=== PATIENT | male | born 1970 | race African-American/Black ===

== ENCOUNTER 2017-06-13 17:00 | Inpatient (IN) | payer MEDICARE, MEDICAID ==
[~2017-06-13] VITALS: Ht 175.3 cm; Wt 86.2 kg
--- NOTE | ~2017-06-13 | HP ---
Unit #: [id number] #: [id number] Patient: YEISON HAHN [id number] [facility] [address] [place] [address] [id number] I MR#: [id number] NAME: YEISON HAHN ROOM: P211 Age: 46 Sex: M Admission Date: 06/13/2017 : 1970 Attending Physician: Agusto Cheung M.D. Admitting Physician: Agusto Cheung M.D. Primary Care Physician: Primary Care Physician No HISTORY AND PHYSICAL HISTORY OF PRESENT ILLNESS The patient is a 46-year-old male has been admitted to [facility] for suicidal and homicidal ideations. He is also hear for detox. PAST MEDICAL HISTORY 1. Arthritis. 2. Diabetes. 3. Hypertension. 4. Tobaccoism. 5. Polysubstance abuse. PAST SURGICAL HISTORY None. ALLERGIES No known allergies. HOME MEDICATIONS Metformin 100 mg p.o. b.i.d. FAMILY HISTORY Medically noncontributory. SOCIAL HISTORY He is disabled and homeless. He smokes approximately 1-1/2 packs of cigarettes daily. He also uses spice and crack. REVIEW OF SYSTEMS CONSTITUTIONAL: Denies fever or chills. HEENT: Denies sore throat, ear pain, or runny nose. CARDIOVASCULAR: Denies chest pain, irregular heart rhythm, or palpitations. CHEST: Denies shortness of breath or cough. No hemoptysis. GI: Denies nausea, vomiting, diarrhea, or chronic constipation. ENDOCRINE: Denies increased thirst or urination. Denies any recent weight loss or gain. : Denies dysuria, frequency, or hematuria. SKIN: Denies any rashes. HEMATOLOGIC: Denies history of increased bleeding or bruising. MUSCULOSKELETAL: Denies any hot, swollen joints. No generalized pain. NEUROLOGIC: Denies problems with speech, vision, numbness, or tingling. Denies loss of bowel or bladder control. Unit #: [id number] #: [id number] Patient: YEISON HAHN PHYSICAL EXAMINATION GENERAL: The patient is awake, alert, in no acute distress. VITAL SIGNS: Temperature 98.2, heart rate 66, respirations 18, blood pressure 159/92. He is 5 feet 9 inches and weighs 190 pounds. HEENT: Head is atraumatic, normocephalic. Pupils are equal, round, and reactive. Extraocular movements are intact. No drainage from ears or nose. NECK: Supple. Trachea is midline. HEART: Regular rate and rhythm. LUNGS: Clear. ABDOMEN: Soft, nontender, and nondistended. : Not done. SKIN: Warm, dry without unusual rashes or lesions. EXTREMITIES: No clubbing, cyanosis, or edema. NEUROLOGIC: Cranial nerves II through XII are intact. No focal deficits. Sensory/motor function: Grossly normal. Moves all extremities well. Coordination: Gait normal. Deep tendon reflexes intact. IMPRESSION Psychiatric admission. RECOMMENDATIONS PSYCHIATRIC: Per psychiatrist. MEDICAL: I see no contraindication to participate in this facility activities. MEDICAL PROGNOSIS Fair. MEDICAL CONDITION Stable. Dictated by... Bozena Mcdonald TD: 06/14/2017 13:34 JOB #: [id number] HISTORY AND PHYSICAL Page 1 of 1 X Michelle Reese APRN X HISTORY AND PHYSICAL
--- NOTE | ~2017-06-13 | DS ---
Unit #: [id number] #: [id number] Patient: YEISON HAHN [id number] [facility] [address] [place] [address] [id number] I MR#: [id number] NAME: YEISON HAHN ROOM: [facility] Age: 46 Sex: M Admission Date: 06/13/2017 : 1970 Discharge Date: 06/17/2017 Attending Physician: Agusto Cheung M.D. Primary Care Physician: Primary Care Physician No DISCHARGE SUMMARY REASON FOR ADMISSION Suicidal ideation, homicidal ideation, addiction. DIAGNOSTIC STUDIES LABORATORY RESULTS: Unremarkable. HOSPITAL COURSE The patient was admitted to inpatient unit on 06/13/2017 and discharged on 06/17/2017. The patient was treated on the inpatient unit with group therapy, individual therapy, and medication management. The patient was responsive to treatment. The patient was subsequently discharged with a plan to follow up in outpatient program. DISCHARGE MEDICATIONS Zyprexa 10 mg b.i.d. for psychosis and Glucophage 1000 mg b.i.d. for diabetes. DISCHARGE DIAGNOSES Psychiatric: Schizoaffective disorder, bipolar type, F25.9; history of amphetamine abuse; cocaine abuse, moderate. Secondary diagnosis: Deferred. Medical diagnosis: None. Stressors: Psychosocial stressors. DISCHARGE INSTRUCTIONS The patient to follow up in outpatient clinic as per clinical social worker. CONDITION ON DISCHARGE The patient was pleasant and cooperative. Denied any psychotic symptom or any suicidal ideation. PROGNOSIS Guarded. DIET AND ACTIVITY As tolerated. Dictated by... Mayur Trevino M.D. Unit #: [id number] #: [id number] Patient: YEISON HAHN SZC/modl TD: 06/17/2017 21:00 JOB #: [id number] DISCHARGE SUMMARY Page 1 of 1 X Mayur Trevino MD X DISCHARGE SUMMARY
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
--- NOTE | ~2017-06-13 | PN ---
Unit #: [id number] #: [id number] Patient: YEISON HAHN [id number] [facility] [address] [place] [address] [id number] I MR#: [id number] NAME: YEISON HAHN ROOM: 13 Age: 46 Sex: M Admission Date: 06/13/2017 : 1970 Attending Physician: Agusto Cheung M.D. Admitting Physician: Agusto Cheung M.D. Primary Care Physician: Primary Care Physician Caren HOLLAND PROGRESS NOTES DATE OF SERVICE 06/16/2017 DISCUSSION Mr. Arias is a 46-year-old male seen on 06/16/2017. The patient interviewed, chart reviewed. Obtained information from nursing staff. The patient was compliant, cooperative. Mood sad, dysphoric, affect guarded. The patient was admitted with suicidal ideation, homicidal ideation, or addiction. The patient reports making progress. No side effects from medication. Complete Review of Systems: Unremarkable. MENTAL STATUS EXAMINATION General Appearance: The patient dressed casually. Attention span, concentration: Fair. Oriented in place and person. Mood and affect labile. Speech: Monotone. Thought process: [place]. The patient denied any thoughts of harming self or others or any psychotic symptom. Somewhat guarded, seclusive. Recent and remote memory: Poor. Insight and judgment: Poor. DIAGNOSIS Schizoaffective disorder bipolar type, F25.9 ASSESSMENT/PLAN Advised to continue with current medication and therapeutic protocol. If needed, consider further adjustment of medication. Dictated by... Owen Herr/hai TD: 06/18/2017 09:00 JOB #: [id number] Unit #: [id number] #: [id number] Patient: YEISON HAHN [facility] PROGRESS NOTES Page 1 of 1 X Mayur Trevino MD PROGRESS NOTE
--- NOTE | ~2017-06-13 | PN ---
Unit #: [id number] #: [id number] Patient: YEISON PARIS [id number] [facility] [address] [place] [address] [id number] I MR#: [id number] NAME: YEISON PARIS ROOM: P113 Age: 46 Sex: M Admission Date: 06/13/2017 : 1970 Attending Physician: Agusto Cheung M.D. Admitting Physician: Agusto Cheung M.D. Primary Care Physician: Primary Care Physician Caren BULLOCK NOTES DATE June 15, 2017 DISCUSSION Mr. Paris is a 46-year-old male, who was seen today and chart was reviewed and the case was discussed with the staff. He has been anxious, withdrawn, agitated, irritable, disorganized and rather seclusive to himself with bizarre behavior and unable to carry on meaningful conversation. He does appear to be somewhat out of touch with reality. Meanwhile, he has been taking the medications and tolerating them fairly well with no reported side effects. MENTAL STATUS EXAMINATION Middle-aged male, who was casually dressed with fair personal hygiene and appears to be in no acute distress or discomfort. He was awake and alert with intact orientation. His mood is anxious with a congruent affect. He denies any suicidal or homicidal ideations. His insight and judgment remain slightly impaired. TREATMENT PLAN 1. We will continue him on his current medications and treatment protocol, and will monitor his response to the medications, and make further adjustments as needed. 2. We will continue to followup. Dictated by... Owen Bill/shima TD: 06/16/2017 12:52 JOB #: [id number] Unit #: [id number] #: [id number] Patient: YEISON PARIS [facility]ACH[facility]CORAL PROGRESS NOTES Page 1 of 1 X Agusto Cheung MD PROGRESS NOTE
--- NOTE | ~2017-06-13 | CO ---
Unit #: [id number] #: [id number] Patient: YEISON HAHN [id number] [facility] [address] [place] [address] [id number] I MR#: [id number] NAME: YEISON HAHN ROOM: [facility] Age: 46 Sex: M Admission Date: 06/13/2017 : 1970 Attending Physician: Agusto Cheung M.D. Consultation Date: 06/14/2017 CONSULTATION REPORT REASON FOR CONSULTATION Diabetes. SUBJECTIVE The patient is a 46-year-old male, who states that he has been diabetic since 2004. The patient states that he takes metformin 1000 mg p.o. b.i.d. He states he has been without his metformin for approximately 20 days. He states he does not check his blood sugars at home and does not really have much medical followup. OBJECTIVE GENERAL: The patient is awake, alert, in no acute distress. VITAL SIGNS: Stable. CHEST: Clear. CARDIOVASCULAR: S1, S2. SKIN: Warm, dry, and intact. EXTREMITIES: No clubbing, edema, or cyanosis. ASSESSMENT Diabetes. PLAN At this time, we will check a hemoglobin A1c on the patient. We will also resume the patient's home metformin a 1000 mg p.o. b.i.d. I have discussed with the patient that he will need outpatient followup and he will follow up with either [facility] or [facility]. The patient at this time is agreeable. Dictated by... Michelle Reese A.P.R.N. for Helena De La Rosa M.D. AM/odell TD: 06/14/2017 13:27 JOB #: [id number] Unit #: [id number] #: [id number] Patient: YEISON HAHN CONSULTATION REPORT Page 1 of 1 X Michelle Reese APRN X CONSULTATION REPORT
[2017-06-14 11:27] LABS: EOSINOPHIL# 0.4 X10e3 (0-0.7); EOSINOPHIL% 7.7 % (0.0-7.0); HEMATOCRIT 40.9 % (38.0-50.0); HEMOGLOBIN 13.3 gm/dL (13.0-16.0); MEAN CELL VOLUME 78.3 FL (83-96); MEAN CORPUSCULAR HEMOGLOBIN 25.5 PG (28-34); MEAN CORPUSCULAR HGB CONC 32.5 g/dL (30-36); MEAN PLATELET VOLUME 8.3 FL (6.5-11.5); MONOCYTE# 0.3 X10e3 (0-1.0); MONOCYTE% 7.1 % (3.0-12.0); NEUTROPHIL% 41.2 % (40-75); PLATELET COUNT 243 X10e3 (140-420); RED BLOOD COUNT 5.22 X10e (3.90-5.60); WHITE BLOOD COUNT 4.8 X10e3 (4.0-10.5)
[2017-06-14 11:31] LABS: DIFF IND NO
[2017-06-14 11:53] LABS: ALBUMIN SERUM 4.2 g/dL (3.5-5.0); BILIRUBIN,TOTAL 0.7 mg/dL (0.2-2.0); BUN/CREATININE RATIO 8.66; CALCIUM SERUM 9.9 mg/dL (8.4-10.2); CREATININE SERUM 1.5 mg/dL (0.6-1.4); GLOM FILT RATE Estimated 63.8 mL/min (>60); POTASSIUM 4.8 mmol/L (3.5-5.1); PROTEIN TOTAL SERUM 7.1 g/dL (6.0-8.3)
[2017-06-17 12:31] LABS: URINE APPEARANCE CLEAR; URINE BILIRUBIN NEG (NEG); URINE BLOOD NEG (NEG); URINE COLOR YELLOW; URINE GLUCOSE NEG (NEG); URINE KETONE NEG (NEG); URINE LEUKOCYTE ESTERASE 3+ (NEG); URINE NITRATE NEG (NEG); URINE PROTEIN NEG (NEG); URINE SPECIFIC GRAVITY 1.022 (1.003-1.035); URINE UROBILINOGEN 0.2 MG/DL (NEG)
[2017-06-17 12:35] LABS: URBCS1 AUWI 0-2 /[HPF] (0-2); URINE BACTERIA AUWI 2+ (NEGATIVE); URINE SQUAMOUS EPITHELIAL CELL OCC /[HPF]; UWBCS1 AUWI 50-100 (0-5)
[2017-06-17 12:53] LABS: AMPHETAMINE NEG (NEG); BARBITURATES NEG (NEG); BENZODIAZEPINES NEG (NEG); COCAINE NEG (NEG); MARIJUANA NEG (NEG); OPIATES NEG (NEG); TRICYCLIC ANTIDEPRESSANTS NEG (NEG); U METHADONE NEG (NEG)
== END 2017-06-17 10:34 | disposition home or self-care (01) | DRG 885 ==
LOC: P2S 19:59 → P1S 19:59 → P2S 22:45 → P1S 06-14 13:30
PROVIDERS: Psychiatry & Neurology Psychiatry
PROC: HZ2ZZZZ Detoxification Services for Substance Abuse Treatment (ICD-10-PCS; principal; 2017-06-13)
DX: F25.9 Schizoaffective disorder, unspecified (principal); F14.20 Cocaine dependence, uncomplicated; R45.851 Suicidal ideations; F15.20 Other stimulant dependence, uncomplicated; R45.850 Homicidal ideations; M19.90 Unspecified osteoarthritis, unspecified site; E11.9 Type 2 diabetes mellitus without complications; I10 Essential (primary) hypertension; F17.210 Nicotine dependence, cigarettes, uncomplicated; Z79.84 Long term (current) use of oral hypoglycemic drugs
CPT/HCPCS: 80053; 80307; 81003; 83036; 85025

== ENCOUNTER 2017-07-23 10:14 | Inpatient (IN) | payer MEDICARE, MEDICAID ==
[~2017-07-23] VITALS: Ht 175.3 cm; Wt 86.2 kg
--- NOTE | ~2017-07-23 | PN ---
Unit #: [id number] #: [id number] Patient: YEISON PARIS [id number] [facility] [address] [place] [address] [id number] I MR#: [id number] NAME: YEISON PARIS ROOM: 32 Age: 46 Sex: M Admission Date: 07/23/2017 : 1970 Attending Physician: Agusto Cheung M.D. Admitting Physician: Agusto Cheung M.D. Primary Care Physician: Primary Care Physician Caren BULLOCK NOTES DATE OF SERVICE: 07/27/2017 SUBJECTIVE Mr. Paris is a 46-year-old male, who was seen today and chart was reviewed, and case was discussed with the staff. He was seen to be anxious, withdrawn, disorganized, . Meanwhile, he has been taking the medications and tolerating them fairly well with no reported side effects. MENTAL STATUS EXAMINATION Middle-aged male, who was casually dressed with a fair personal hygiene and appears to be in no acute distress or discomfort. He was awake and alert with impaired attention and concentration. His mood was anxious with a congruent affect. He denies any suicidal or homicidal ideations. His thought processes were disorganized with some looseness of associations and paranoid ideations. His insight and judgment remain significantly impaired. TREATMENT PLAN 1. We will continue him on his current medications and treatment protocol. We will monitor his response to medication and make further adjustments as needed. 2. We will continue to follow up. Dictated by... Owen Bill/odell TD: 07/30/2017 02:38 JOB #: [id number] Unit #: [id number] #: [id number] Patient: YEISON PARIS [facility] BULLOCK NOTES Page 1 of 1 X Agusto Cheung MD NOTE
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
--- NOTE | ~2017-07-23 | DS ---
Unit #: [id number] #: [id number] Patient: YEISON PARIS [id number] [facility] [address] [place] [address] [id number] MR#: [id number] NAME: YEISON PARIS ROOM: [facility] Age: 46 Sex: M Admission Date: 07/23/2017 : 1970 Discharge Date: 07/30/2017 Attending Physician: Agusto Cheung M.D. Primary Care Physician: Primary Care Physician No DISCHARGE SUMMARY IDENTIFYING DATA Mr. Paris is a 46-year-old single male, who is a resident of [place], [place], and is known to me from previous encounter and was self-referred to the hospital on a voluntary basis. DISCHARGE DIAGNOSES Psychiatric: Schizoaffective disorder, bipolar type, most recent episode depressed, recurrent, moderate, with psychosis; cannabis abuse, moderate; cocaine abuse, moderate; and psychostimulant abuse, moderate. Medical: None. Stressors: Moderate psychosocial stressors. HISTORY OF PRESENT ILLNESS Please see initial psychiatric evaluation for details. PAST PSYCHIATRIC HISTORY Please see initial psychiatric evaluation for details. PAST MEDICAL HISTORY Please see initial psychiatric evaluation for details. HOSPITAL COURSE The patient was admitted to the adult psychiatric unit at [facility] alysha Enrique and was oriented to the hospital environment. Routine p.r.n. medications were initiated, and he was started back on his home medications and medications were adjusted and Zyprexa was started back and he was closely monitored. He was taking the medications regularly and was tolerating them fairly well and was able to show a decent and therapeutic response with improvement in depression and anxiety and was willing to continue treatment on an outpatient basis and as such, it was decided that he will be discharged home and will continue treatment on an outpatient basis. DISCHARGE MEDICATIONS Zyprexa 10 mg b.i.d. for psychosis. DISCHARGE CONDITION Stable. PROGNOSIS Fair. Dictated by... Unit #: [id number] #: [id number] Patient: YEISON PARIS Owen Bill/sudhirl TD: 07/30/2017 16:31 JOB #: [id number] DISCHARGE SUMMARY Page 1 of 1 X Agusto Cheung MD DISCHARGE SUMMARY
--- NOTE | ~2017-07-23 | PN ---
Unit #: [id number] #: [id number] Patient: YEISON PARIS [id number] [facility] [address] [place] [address] [id number] I MR#: [id number] NAME: YEISON PARIS ROOM: 32 Age: 46 Sex: M Admission Date: 07/23/2017 : 1970 Attending Physician: Agusto Cheung M.D. Admitting Physician: Agusto Cheung M.D. Primary Care Physician: Primary Care Physician Caren BULLOCK NOTES DATE 07/24/2017 DISCUSSION Mr. Paris is a 46-year-old, male with substance abuse and mood disorder and psychosis who was seen today and chart was reviewed and case was discussed with the staff. He was seen to be anxious, withdrawn, agitated, irritable, disorganized and rather delusional and unable to carry on meaningful conversations stating " "I am spiced out." Meanwhile, he has been taking medication which was just initiated yesterday without any tolerability issues. MENTAL STATUS EXAM Middle-aged male who was casually dressed with fair personal hygiene, appears to be in no acute distress or discomfort. He was awake and alert with impaired attention and concentration. His mood was anxious and depressed with congruent affect. His speech was slow and restricted in content. His thought processes were disorganized with some looseness of associations and paranoid ideations. His insight and judgement remains significantly impaired. TREATMENT PLAN 1. We will continue him on his current medications and treatment protocol. We will monitor his response and make further adjustments as needed. 2. We will continue to follow up. Dictated by... Owen Bill/dimitris TD: 07/24/2017 22:56 JOB #: [id number] Unit #: [id number] #: [id number] Patient: YEISON PARIS ZACHARYCORAL KOBE NOTES Page 1 of 1 X Agusto Cheung MD PROGRESS NOTE
--- NOTE | ~2017-07-23 | PN ---
Unit #: [id number] #: [id number] Patient: YEISON PARIS [id number] [facility] [address] [place] [address] [id number] I MR#: [id number] NAME: YEISON PARIS ROOM: 32 Age: 46 Sex: M Admission Date: 07/23/2017 : 1970 Attending Physician: Agusto Cheung M.D. Admitting Physician: Agusto Cheung M.D. Primary Care Physician: Primary Care Physician Caren BULLOCK NOTES DATE OF SERVICE: 07/28/2017 SUBJECTIVE Mr. Paris is a 46-year-old male, who was seen today, chart was reviewed and case was discussed with the staff. He has been anxious, restless, withdrawn, and rather seclusive to himself. Meanwhile, he has been cooperative with treatment recommendations and still has been showing some significant mood instability. MENTAL STATUS EXAMINATION Middle-aged male, who is casually dressed with fair personal hygiene, appears to be in no acute distress or discomfort. He was awake and alert with impaired attention and concentration. His mood was anxious with a congruent affect. His speech was slow and restricted in content. He denies any suicidal or homicidal ideations and also denies any auditory or visual hallucinations. His insight and judgment remain slightly impaired. TREATMENT PLAN 1. We will continue on his current medications and treatment protocol. We will monitor his response to medications and make further adjustments as needed. 2. We will continue to follow up. Dictated by... Owen Bill/odell TD: 07/30/2017 03:07 JOB #: [id number] Unit #: [id number] #: [id number] Patient: YEISON PARIS ZACHARYCORAL PROGRESS NOTES Page 1 of 1 X Agusto Cheung MD PROGRESS NOTE
--- NOTE | ~2017-07-23 | CO ---
Unit #: [id number] #: [id number] Patient: YEISON HAHN [id number] [facility] [address] [place] [address] [id number] I MR#: [id number] NAME: YEISON HAHN ROOM: 32 Age: 46 Sex: M Admission Date: 07/23/2017 : 1970 Attending Physician: Agusto Cheung M.D. Primary Care Physician: Primary Care Physician No Consultation Date: 07/23/2017 CONSULTATION REPORT SUBJECTIVE Yeison is a 46-year-old with history of high blood pressure. His pressures have been high since admission. He was admitted on no home blood pressure medication. We have been asked to assess and treat. He has had no complaints of chest pain or shortness of breath. OBJECTIVE GENERAL: Alert, well nourished, in no apparent distress. VITAL SIGNS: Blood pressure 160/90, 152/102, 140/88. Heart rate 80, 91. Respirations 16. CARDIOVASCULAR: Rate and rhythm is regular. CHEST: Lungs clear. EXTREMITIES: No edema. ASSESSMENT High blood pressure, not controlled. PLAN Start Norvasc 5 mg one p.o. daily. Dictated by... Alee Colon P.A.-C. for wOen Fernandez/odell TD: 07/25/2017 13:24 JOB #: [id number] CONSULTATION REPORT Page 1 of 1 X Alee Colon CONSULTATION REPORT
--- NOTE | ~2017-07-23 | PN ---
Unit #: [id number] #: [id number] Patient: YEISON PARIS [id number] [facility] [address] [place] [address] [id number] I MR#: [id number] NAME: YEISON PARIS ROOM: 32 Age: 46 Sex: M Admission Date: 07/23/2017 : 1970 Attending Physician: Agusto Cheung M.D. Admitting Physician: Agusto Cheung M.D. Primary Care Physician: Primary Care Physician Caren BULLOCK NOTES DATE 07/26/2017 DISCUSSION Mr. Paris is a 46-year-old, male who was seen today and chart was reviewed and case was discussed with the staff. He was anxious, withdrawn, with bizarre behavior though has not shown any violent outburst. Meanwhile, he has been taking the medication and tolerating them fairly well with no reported side effects. MENTAL STATUS EXAM Middle-aged male who is casually dressed with fair personal hygiene appears to be in acute distress or discomfort. He was awake and alert with impaired attention and concentration. His mood was anxious with congruent affect. His speech was slow and restricted in content. His thought processes were disorganized with some looseness of associations and paranoid ideations. His insight and judgement remains significantly impaired. TREATMENT PLAN 1. We will continue him on his current medications and treatment protocol. We will monitor his response to the medication and make further adjustments as needed. 2. We will continue to follow up. Dictated by... Owen Bill/dimitris TD: 07/29/2017 03:50 JOB #: [id number] Unit #: [id number] #: [id number] Patient: YEISON PARIS SKYLER BULLOCK NOTES Page 1 of 1 X Agusto Cheung MD PROGRESS NOTE
--- NOTE | ~2017-07-23 | PN ---
Unit #: [id number] #: [id number] Patient: YEISON PARIS [id number] [facility] [address] [place] [address] [id number] I MR#: [id number] NAME: YEISON PARIS ROOM: 32 Age: 46 Sex: M Admission Date: 07/23/2017 : 1970 Attending Physician: Agusto Cheung M.D. Admitting Physician: Agusto Cheung M.D. Primary Care Physician: Primary Care Physician Caren BULLOCK NOTES DATE July 25, 2017 DISCUSSION Mr. Paris is a 46-year-old male, who was seen today and chart was reviewed and the case was discussed with the staff. He has been anxious, withdrawn, and seclusive to himself. Meanwhile, he has been cooperative with the treatment recommendations and he has been taking the medications and tolerating them fairly well with no reported side effects. MENTAL STATUS EXAMINATION Middle-aged male, who was casually dressed with fair personal hygiene and appears to be in no acute distress or discomfort. He was awake and alert on interaction with intact orientation. His mood is anxious with a congruent affect. He denies any suicidal or homicidal ideations. His thought processes are disorganized with some looseness of associations, paranoid ideations, and delusional behavior. His insight and judgment remain significantly impaired. TREATMENT PLAN 1. We will continue him on his current medications and treatment protocol, and will monitor his response to the medications, and make further adjustments as needed. 2. We will continue to followup. Dictated by... Owen Bill/shima TD: 07/25/2017 13:20 JOB #: [id number] Unit #: [id number] #: [id number] Patient: YEISON PARIS ZACHARYCORAL KOBE NOTES Page 1 of 1 X Agusto Cheung MD PROGRESS NOTE
--- NOTE | ~2017-07-23 | HP ---
Unit #: [id number] #: [id number] Patient: YEISON HAHN [id number] [facility] [address] [place] [address] [id number] I MR#: [id number] NAME: YEISON HAHN ROOM: P132 Age: 46 Sex: M Admission Date: 07/23/2017 : 1970 Attending Physician: Agusto Cheung M.D. Admitting Physician: Agusto Cheung M.D. Primary Care Physician: Primary Care Physician No HISTORY AND PHYSICAL HISTORY OF PRESENT ILLNESS Yeison is a 46 year old admitted to [address] [place] [address] with depression and verbalizing wanting to hurt himself. PAST MEDICAL HISTORY 1. History of poly-illicit substance abuse. 2. High blood pressure. 3. Degenerative disc disease. a. Chronic back pain. 4. Diabetes mellitus. PAST SURGICAL HISTORY Nothing reported. ALLERGIES No known drug allergies. SOCIAL HISTORY Smokes less than one-half pack per day. Admits to drinking alcohol and using marijuana on occasion. Has a long history of crack cocaine use and smoking spice. FAMILY HISTORY Medically noncontributory. REVIEW OF SYSTEMS CONSTITUTIONAL: No fever or chills. HEENT: Denies any sore throat, ear pain or runny nose. CARDIOVASCULAR: Denies chest pain, irregular heart rhythm or palpitations. CHEST: Denies shortness of breath or cough. No hemoptysis. GASTROINTESTINAL: Denies nausea, vomiting, diarrhea or chronic constipation. ENDOCRINE: Denies history of increased thirst or urination. No recent significant weight loss or gain. GENITOURINARY: Denies dysuria, frequency, or hematuria. SKIN: Denies any rashes. HEMATOLOGIC: Denies history of increased bleeding or bruising. MUSCULOSKELETAL: Denies any hot, swollen joints. No generalized muscle pain. NEUROLOGIC: Denies problems with vision or speech. No frequent, severe headaches. No numbness, tingling or weakness in any extremities. Denies loss of bladder or bowel control. Unit #: [id number] #: [id number] Patient: YEISON HAHN CURRENT MEDICATIONS 1. Desyrel 100 mg q h.s. 2. Zyprexa 10 mg b.i.d. 3. Vistaril p.r.n. 4. Glucophage 1000 mg b.i.d. 5. Nicotine patch 7 mg q day 6. Milk of Magnesia p.r.n. 7. Maalox p.r.n. 8. Tylenol p.r.n. PHYSICAL EXAMINATION GENERAL: Alert, well-nourished, in no apparent distress. VITAL SIGNS: Blood pressure 152/100, heart rate 80, respirations 16, temperature 98.6. WEIGHT: 190. HEIGHT: 5 foot 9 inches. SKIN: Warm and dry without rash or lesion. HEENT: Normocephalic. TMs not viewed. Oral and nasal passages clear. Conjunctivae clear. Pupils equal, round and reactive to light and accommodation. Extraocular movements intact. NECK: Supple without lymphadenopathy or thyromegaly. HEART: Regular rate and rhythm without murmur. LUNGS: Clear. ABDOMEN: Soft, nontender. : Not done. EXTREMITIES: No evidence of cyanosis, clubbing or edema. Moves all extremities without focal deficit. NEUROLOGICAL: Grossly within normal limits. Cranial Nerves: II: Visual herrera are intact. III, IV AND : Extraocular movements are intact. Pupils are equal, round and reactive to light. V: Facial sensation is grossly normal. VII: Facial movements and expression are normal. VIII: Auditory acuity grossly intact. IX, X: Uvula is midline. Phonation is normal. XI: Patient shrugs shoulders and turns head normally. XII: Tongue protrudes in the midline. Sensory and Motor Function: Sensory and motor sensation is grossly normal. Motor: moves all extremities well. Coordination: Gait is normal. Deep Tendon Reflexes: Intact. IMPRESSION Psychiatric admission. RECOMMENDATIONS PSYCHIATRIC: Per psychiatrist. MEDICAL: I see no contraindications to participating in facility's activities. MEDICAL PROGNOSIS Good. MEDICAL CONDITION Stable. Unit #: [id number] #: [id number] Patient: YEISON HAHN Dictated by... Enrique JaquezAGiuliano. for Owen Fernandez/dimitris TD: 07/23/2017 20:41 JOB #: [id number] HISTORY AND PHYSICAL Page 1 of 1 X Alee Colon HISTORY AND PHYSICAL
--- NOTE | ~2017-07-23 | PN ---
Unit #: [id number] #: [id number] Patient: YEISON PARIS [id number] [facility] [address] [place] [address] [id number] MR#: [id number] NAME: YEISON PARIS ROOM: 32 Age: 46 Sex: M Admission Date: 07/23/2017 : 1970 Attending Physician: Agusto Cheung M.D. Admitting Physician: Agusto Cheung M.D. Primary Care Physician: Primary Care Physician Caren BULLOCK NOTES DATE 07/29/2017 DISCUSSION Mr. Paris is a 46-year-old, white male who was seen today and chart was reviewed and case was discussed with the staff. He has been anxious, withdrawn and rather seclusive to himself. Meanwhile, he has been cooperative with treatment recommendations. He has been taking the medication and tolerating them fairly well with no reported side effects. MENTAL STATUS EXAM Middle-aged male who was casually dressed with fair personal hygiene, appears to be in no acute distress or discomfort. He was awake and alert with impaired attention and concentration. His mood was anxious with congruent affect. He denies any suicidal or homicidal ideation. His insight and judgement remains slightly impaired. TREATMENT PLAN 1. We will continue him on his current medications and treatment protocol. We will monitor his response to the medication and make further adjustments as needed. 2. We will continue to follow up. Dictated by... Owen Bill/dimitris TD: 07/30/2017 21:41 JOB #: [id number] Unit #: [id number] #: [id number] Patient: YEISON PARIS ZACHARYCORAL PROGRESS NOTES Page 1 of 1 X Agusto Cheung MD PROGRESS NOTE
== END 2017-07-30 09:51 | disposition home or self-care (01) | DRG 885 ==
LOC: P1S 11:22
DX: F25.0 Schizoaffective disorder, bipolar type (principal); E11.9 Type 2 diabetes mellitus without complications; I10 Essential (primary) hypertension; F12.10 Cannabis abuse, uncomplicated; F14.10 Cocaine abuse, uncomplicated; F15.10 Other stimulant abuse, uncomplicated; M19.90 Unspecified osteoarthritis, unspecified site